=== PATIENT | male | born 1985 | race Caucasian/White ===

== ENCOUNTER → 2017-03-11 | Outpatient (CLI) | payer OTHER ==
--- NOTE | 2017-03-11 16:25 | RAD ---
Scrotal ultrasound, 03/11/2017: History: Left-sided pain The right testicle measures 4.0 x 2.8 x 2.3 cm while the left testicle measures 4.1 x 2.5 x 1.9 cm. There is no evidence of a testicular mass. There is symmetric blood flow in both testicles. A 6 mm cyst is present in the left epididymis. The right epididymis is unremarkable. There is a moderate-sized varicocele on the left. No significant hydrocele is seen on either side. IMPRESSION: 1. Left varicocele. 2. Small left epididymal cyst. 3. No testicular abnormality is detected.
== END | disposition home or self-care (01) ==
LOC: US 15:52
PROVIDERS: ATTEND Family Medicine
DX: I86.1 Scrotal varices (principal); L72.0 Epidermal cyst
CPT/HCPCS: 76870